=== PATIENT | female | born 1960 | race Caucasian/White ===

== ENCOUNTER 2017-04-13 08:41 | Day surgery (SDC) | payer MEDICARE, OTHER ==
--- NOTE | ~2017-04-13 | OP ---
Record Of Operation [facility] [address] [place]. [address] NAME: GEOFFREY ZARATE : 60 [place] [facility] [place] [id number] AGE: 56 ADM/REG DATE : MR#: [id number] REPORT SERV DATE: 04/09/17 DICTATED BY: LEONARDO PIKE JR. DATE: 03/27/17 REPORT STATUS : Draft TRANSCRIBED BY: VIVIENNE DATE: 03/27/17 DATE OF PROCEDURE: 03/14/2017 REASON FOR SURGERY: This 56-year-old patient presents after treatment for node-positive malignancy of the right breast. She is now scheduled for removal of venous port. PREOPERATIVE DIAGNOSIS: Breast cancer with need of removal of venous port. POSTOPERATIVE DIAGNOSIS: Breast cancer with need of removal of venous port. SURGEON: Leonardo Pike M.D. SURGERY PERFORMED: Removal of venous port. PROCEDURE IN DETAIL: The patient was prepped and draped in supine position in usual sterile fashion. 1% Xylocaine was used to anesthetize the old infraclavicular incision on the left side. The incision was made and the port site entered. The system was removed in toto. The wound was irrigated, hemostasis obtained. The wound was closed with two layers of Monocryl. The patient tolerated the procedure well without complications. ESTIMATED BLOOD LOSS: Negligible. SPONGE COUNT: Correct. /VIVIENNE Leonardo Pike Jr., M.D. / [id number]
--- NOTE | ~2017-04-13 | OP ---
Record Of Operation [facility] [address] [place]. [address] NAME: GEOFFREY ZARATE : 60 STATUS : [facility]#: [id number] AGE: 56 ADM/REG DATE : 04/13/17 MR#: [id number] REPORT SERV DATE: 04/18/17 DICTATED BY: LEONARDO PIKE JR. DATE: 04/18/17 REPORT STATUS : Draft TRANSCRIBED BY: VIVIENNE DATE: 04/18/17 DATE OF PROCEDURE: 04/13/2017 REASON FOR SURGERY: This 56-year-old patient has completed treatment for node positive malignancy of the right breast. She is now scheduled for removal of venous port. PREOPERATIVE DIAGNOSIS: Breast cancer with need of removal of venous port. POSTOPERATIVE DIAGNOSIS: Breast cancer with need of removal of venous port. SURGERY PERFORMED: Removal of venous port. PROCEDURE IN DETAIL: The patient was prepped and draped in supine position in usual sterile fashion. 1% Xylocaine was used to anesthetize the old infraclavicular incision on the left side. The incision was made and the port site entered. The system was removed in toto. The wound was irrigated and hemostasis was obtained. The wound was closed with two layers of Monocryl. The patient tolerated the procedure well without complications. ESTIMATED BLOOD LOSS: Negligible. SPONGE COUNT: Correct. /VIVIENNE Leonardo Pike Jr., M.D. / [id number] CC: Rory Adams Jr., DAVID
[~2017-04-13 08:41] MED LIST: ABILIFY20 MG PO; ARIMIDEX1 PO; CYMBALTA60 PO; LAMICTAL 100 MG PO; LAMICTAL10 PO; NEUR300 PO; NORCO1 TAB PO; PCET PO; PRILOSEC40 MG PO; REM15 PO; SULFADIAZINE500 MG PO; TRAZ100 PO; WELLBUTRIN 150 MG PO; WELLSR150 PO; X5 PO; ZESTORETIC PO
== END 2017-04-13 23:59 | disposition home or self-care (01) ==
LOC: SDC 08:41
PROVIDERS: Surgery Surgical Oncology
PROC: 0JPT0WZ Removal of Totally Implantable Vascular Access Device from Trunk Subcutaneous Tissue and Fascia, Open Approach (ICD-10-PCS; principal; 2017-04-13 10:00)
DX: Z45.2 Encounter for adjustment and management of vascular access device (principal); I10 Essential (primary) hypertension; K21.9 Gastro-esophageal reflux disease without esophagitis; Z90.710 Acquired absence of both cervix and uterus; Z98.890 Other specified postprocedural states; Z85.3 Personal history of malignant neoplasm of breast
CPT/HCPCS: 88300